=== PATIENT | male | born 1940 | race Two or more races ===

== ENCOUNTER 2019-05-09 09:16 | Emergency (ER) | payer MEDICARE, OTHER ==
--- NOTE | 2019-05-09 09:47 | ER Document Report ---
ED Medical Screen (RME) - General Chief Complaint: Chest Pressure Stated Complaint: CHEST PRESSURE Time Seen by Provider: 05/09/19 09:40 Primary Care Provider: KOREY CHO MD [Primary Care Provider] - Follow up as needed TRAVEL OUTSIDE OF THE [place] IN LAST 30 DAYS: No - HPI Notes: 05/09/19 09:45 Patient is a 78-year-old male with a history of coronary artery disease with 2 stents being placed couple weeks ago who presents complaining of chest pressure that has been constant for 24 hours. Patient states that the pressure does not radiate. He is not aware of anything that improves or worsens his symptoms. He was at cardiac rehab today and they wanted him evaluated. Patient states that he otherwise feels well. He is able to ambulate without any difficulties. Aren corbett states that he is on a blood thinning medication, but cannot recall which one. Denies HORN, fever, neck pain, URI, SOB, Abd pain,n/v/d, dysuria, back pain, or rash. I have treated and performed a rapid initial assessment of this patient. A comprehensive ED assessment and evaluation of the patient, analysis of test results and completion of medical decision making process will be conducted by additional ED providers. PHYSICAL EXAMINATION: GENERAL: Well-appearing, well-nourished and in no acute resp distress. A&Ox4. Answers questions appropriately. Patient was able to walk fairly quickly and comfortably from the exam room to triage w/o any signs of discomfort or distress. LUNGS: Breath sounds clear to auscultation bilaterally and equal. No wheezes rales or rhonchi. HEART: Regular rate and rhythm without murmurs, rubs, gallops. Extremities: No cyanosis, clubbing, or edema b/l. No lower extremity asymmetry. [place] negative bilaterally. NEUROLOGICAL: Normal speech, normal gait. PSYCH: Normal mood, normal affect. - Related Data Allergies/Adverse Reactions: morphine Allergy (Verified 05/09/19 09:18) Physical Exam - Vital signs Vitals: Temp Pulse Resp BP Pulse Ox 97.4 F 56 L 16 133/69 H 98 05/09/19 09:29 05/09/19 09:29 05/09/19 09:29 05/09/19 09:29 05/09/19 09:29 Course - Vital Signs Vital signs: Temp Pulse Resp BP Pulse Ox 97.4 F 56 L 16 133/69 H 98 05/09/19 09:29 05/09/19 09:29 05/09/19 09:29 05/09/19 09:29 05/09/19 09:29 Doctor's Discharge - Discharge Referrals: KOREY CHO MD [Primary Care Provider] - Follow up as needed
[2019-05-09 10:56] LABS: INTERNATIONAL RATION (INR) 0.98
[2019-05-09 11:01] LABS: ABSOLUTE EOSINOPHILS # (AUTO) 0.1 10^3/uL (0.0-0.6); ABSOLUTE LYMPHOCYTES (AUTO) 1.5 10^3/uL (0.5-4.7); ABSOLUTE MONOCYTES (AUTO) 0.6 10^3/uL (0.1-1.4); ABSOLUTE NEUT (AUTO) 4.3 10^3/uL (1.7-8.2); BASOPHILS % (AUTO) 0.3 % (0-2); EOSINOPHILS % (AUTO) 1.1 % (0-6); HEMATOCRIT 43.2 % (37.9-51.0); LYMPHOCYTES % (AUTO) 23.1 % (13-45); MEAN CORPUSCULAR HEMOGLOBIN 30.6 pg (27.0-33.4); MEAN CORPUSCULAR HGB CONC 34.8 g/dL (32.0-36.0); MEAN CORPUSCULAR VOLUME 88 fl (80-97); MONOCYTES % (AUTO) 9.7 % (3-13); PLATELET COUNT 184 10^3/uL (150-450); RED BLOOD COUNT 4.91 10^6/uL (4.35-5.55); RED CELL DISTRIBUTION WIDTH 13.2 % (11.5-14.0); SEGMENTED NEUTROPHILS % (AUTO) 65.8 % (42-78); TOTAL CELLS COUNTED % (AUTO) 100 %; WHITE BLOOD COUNT 6.6 10^3/uL (4.0-10.5)
--- NOTE | 2019-05-09 11:03 | RADIOLOGY REPORT (SQ) ---
EXAM DESCRIPTION: CHEST 2 VIEWS COMPLETED DATE/TIME: 05/09/2019 10:46 am REASON FOR STUDY: chest pressure COMPARISON: None. EXAM PARAMETERS: NUMBER OF VIEWS: two views TECHNIQUE: Digital Frontal and Lateral radiographic views of the chest acquired. RADIATION DOSE: NA LIMITATIONS: none FINDINGS: LUNGS AND PLEURA: No opacities, masses or pneumothorax. No pleural effusion. MEDIASTINUM AND HILAR STRUCTURES: No masses or contour abnormalities. HEART AND VASCULAR STRUCTURES: Heart normal size. No evidence for failure. BONES: No acute findings. HARDWARE: None in the chest. OTHER: No other significant finding. IMPRESSION: NO ACUTE RADIOGRAPHIC FINDING IN THE CHEST. TECHNICAL DOCUMENTATION: JOB ID: [id number] [employer]- All Rights Reserved Reading location - IP/workstation name: [email or web address]
--- NOTE | 2019-05-09 11:05 | ER Document Report ---
ED Cardiac - General Chief Complaint: Chest Pressure Stated Complaint: CHEST PRESSURE Time Seen by Provider: 05/09/19 09:40 Primary Care Provider: KOREY CHO MD [Primary Care Provider] - Follow up as needed Mode of Arrival: Ambulatory Information source: Patient Notes: This 78-year-old male patient sent to the emergency room from cardiac rehab for evaluation of chest discomfort. The patient had a diagnostic cardiac catheterization at [facility] about 3 wee ks ago, and was found to have 2 narrowed vessels that were stented. He is taking Plavix. The patient reports that he had a very stressful weekend. He had 2 grandchildren ages 4 and 5 visiting. His spouse was overly stressed about them getting injured, as they are probably more than an elderly couple can safely handle. Patient reports yesterday developing left anterior chest pressure with an oc casional electric shock sensation going across the chest to the right. He reports the discomfort did occur during the night and woke him up about 3 AM, he he drank some tea and eventually went back to sleep. It caused him to oversleep this morning prior to going to cardiac rehab. He states that the discomfort is still present now, but it is almost gone. TRAVEL OUTSIDE OF THE [place] IN LAST 30 DAYS: No - Related Data Allergies/Adverse Reactions: morphine Allergy (Verified 05/09/19 09:18) Past Medical History - Social History Smoking Status: Former Smoker - He quit in 1961. Cigarette use (# per day): No Chew tobacco use (# tins/day): No Smoking Education Provided: No Frequency of alcohol use: Occasional Drug Abuse: None Occupation: Retired Lives with: Spouse/Significant other Family History: Reviewed & Not Pertinent Patient has suicidal ideation: No Patient has homicidal ideation: No - Past Medical History Cardiac Medical History: Reports: Hx Coronary Artery Disease, Hx Hypercholesterolemia Denies: Hx Heart Attack, Hx Hypertension Psychiatric Medical History: Reports: None Surgical Hx: Other - Bilateral cataract removal with lens implants. Past Surgical History: Reports: Hx Cardiac Catheterization, Hx Coronary Stent - X2 in March 2019, Hx Genitourinary Surgery - Radical prostatectomy without radiation or chemo., Hx Orthopedic Surgery - Arthroscopic surgery to both shoulders and both knees, Other - Anterior cervical fusion, lumbar discectomy without fusion. Review of Systems - Review of Systems Constitutional: No symptoms reported EENT: No symptoms reported Cardiovascular: See HPI Respiratory: No symptoms reported Gastrointestinal: No symptoms reported Genitourinary: Incontinence - Secondary to his radical prostatectomy Musculoskeletal: No symptoms reported Skin: No symptoms reported Hematologic/Lymphatic: No symptoms reported Neurological/Psychological: No symptoms reported Physical Exam - Vital signs Vitals: Temp Pulse Resp BP Pulse Ox 97.4 F 56 L 16 133/69 H 98 05/09/19 09:05/09/19 09:05/09/19 09:05/09/19 09:05/09/19 09:29 Interpretation: Normal - General General appearance: Appears well, Alert In distress: None - HEENT Head: Normocephalic, Atraumatic Eyes: Normal Pupils: PERRL - Respiratory Respiratory status: No respiratory distress Breath sounds: Normal Chest palpation: Tender - Left anterior chest wall palpation tenderness, palpating the left anterior chest in the midclavicular line reproduces the chief complaint. - Cardiovascular Rhythm: Regular Heart sounds: Normal auscultation Murmur: No - Abdominal Inspection: Normal Bowel sounds: Normal Tenderness: Nontender - Back Back: Normal - Extremities General upper extremity: Normal inspection General lower extremity: Normal inspection - Neurological Neuro grossly intact: Yes - Psychological Associated symptoms: Normal affect, Normal mood - Skin Skin Temperature: Warm Skin Moisture: Dry Skin Color: Normal Course - Re-evaluation Re-evalutation: 05/09/19 11:51 The patient's troponin is undetectable. EKG does not show any ischemic changes. The chest pain does appear to be reproducible. - Vital Signs Vital signs: Temp Pulse Resp BP Pulse Ox 97.4 F 56 L 16 133/69 H 99 05/09/19 09:29 05/09/19 09:05/09/19 09:29 05/09/19 09:05/09/19 10:50 - Laboratory Result Diagrams: 05/09/19 10:38 05/09/19 10:38 - Diagnostic Test Radiology reviewed: Image reviewed, Reports reviewed - Chest x-ray does not show an acute process. - EKG Interpretation by Me EKG shows normal: Sinus rhythm, [place], Intervals, QRS Complexes, ST-T Waves Rate: Normal - 55 Rhythm: NSR [place]/QRS: Left axis deviation, IVCD When compared to previous EKG there are: Previous EKG unavailable Discharge - Discharge Clinical Impression: Chest wall pain Condition: Stable Disposition: HOME, SELF-CARE Additional Instructions: Chest Wall Pain Your chest pain has been diagnosed as coming from the chest wall. This is often caused by straining the muscles or joints in the chest during physical activity, direct trauma, coughing, or vigorous vomiting. Persons with arthritis are especially prone to this type of pain, due to inflammation of the cartilage joints near the breast bone. Occasionally, no cause can be found. Rest from strenuous physical activity. This kind of chest pain is usually made worse by movement of the chest. Depending on the symptoms, we may prescribe medicine for pain, muscle relaxation, and antiinflammatory effects. If the pain is new, and seems to be due to muscle strain, cold packs can h elp. Otherwise, apply gentle warmth to the painful area for 15 minutes every hour or two. You should contact the doctor immediately if things change. Further evaluation is needed if you develop a fever or cough, if the nature of the pain changes, or if you become short of breath. Limit any activity that may make your chest pain worse. Call your primary care provider for follow-up evaluation. RETURN TO THE EMERGENCY ROOM IF ANY NEW OR WORSENING SYMPTOMS. Referrals: KOREY CHO MD [Primary Care Provider] - Follow up as needed
[2019-05-09 11:14] LABS: ALANINE AMINOTRANSFERASE 24 U/L (21-72); ALBUMIN 4.1 g/dL (3.5-5.0); ALKALINE PHOSPHATASE 65 U/L (38-126); ASPARTATE AMINO TRANSFERASE 20 U/L (17-59); BILIRUBIN,DIRECT 0.2 mg/dL (0.0-0.4); BILIRUBIN,TOTAL 0.5 mg/dL (0.2-1.3); BLOOD UREA NITROGEN 19 mg/dL (7-20); CALCIUM 9.2 mg/dL (8.4-10.2); GLUCOSE 93 mg/dL (75-110); POTASSIUM 4.8 mmol/L (3.6-5.0); TOTAL PROTEIN 6.8 g/dL (6.3-8.2)
[2019-05-09 11:19] LABS: ANION GAP 6 (5-19); CARBON DIOXIDE 30 mmol/L (22-30); CHLORIDE 104 mmol/L (98-107)
[2019-05-09 11:26] LABS: NT PRO BNP 56 pg/mL (<450)
[2019-05-09 11:29] LABS: TROPONIN I < 0.012 ng/mL
[2019-05-09 12:03] VITALS: BP 135/85
--- NOTE | 2019-05-09 14:45 | EKG REPORT ---
SEVERITY:- BORDERLINE ECG - SINUS RHYTHM BORDERLINE IVCD WITH LAD : Confirmed by: Shayna Retana MD 09-May-2019 14:44:50
== END 2019-05-09 12:08 | disposition home or self-care (01) ==
LOC: ER 09:16
DX: R07.89 Other chest pain (principal); I45.9 Conduction disorder, unspecified; R32 Unspecified urinary incontinence; I25.10 Atherosclerotic heart disease of native coronary artery without angina pectoris; Z95.5 Presence of coronary angioplasty implant and graft; Z79.02 Long term (current) use of antithrombotics/antiplatelets; Z88.5 Allergy status to narcotic agent
CPT/HCPCS: 36415; 71046; 80053; 83880; 84484; 85025; 85610; 93005; 93010; 99285